=== PATIENT | male | born 1995 | race Caucasian/White ===

== ENCOUNTER 2018-06-22 19:18 | Emergency (ER) | payer OTHER ==
[~2018-06-22] VITALS: Ht 177.8 cm; Wt 81.8 kg
[2018-06-22] MEDS ORDERED: IBUP200C25 PO (21:08)
[2018-06-22] MEDS ORDERED: APAP325T4 PO (21:08)
[2018-06-22] MEDS ORDERED: KETOROLAC 60 MG/2 ML VIAL (J1885) IM ONE (21:45)
--- NOTE | 2018-06-22 22:41 | REPVR ---
EXAM: CT Thoracic Spine Without Contrast EXAM DATE/TIME: 06/22/2018 9:47 PM CLINICAL HISTORY: 22 years old, male; Pain; Pain in thoracic spine; Other: Not specified; Additional info: Atraumatic back pain TECHNIQUE: Axial computed tomography images of the thoracic spine without intravenous contrast. All CT scans at this facility use at least one of these dose optimization techniques: automated exposure control; mA and/or kV adjustment per patient size (includes targeted exams where dose is matched to clinical indication); or iterative reconstruction. Coronal and sagittal reformatted images were created and reviewed. COMPARISON: No relevant prior studies available. FINDINGS: Vertebrae: No acute fracture. Normal alignment. Discs/Spinal canal/Neural foramina: No spinal stenosis. No neural foraminal narrowing. Soft tissues: Unremarkable. IMPRESSION: No acute findings. Electronically signed by: Tony Falcon On 06/22/2018 22:41:06 PM
[2018-06-22] MEDS ORDERED: ROBA500T PO (22:57)
[2018-06-22] MEDS ORDERED: NAPR-50 PO (22:57)
[2018-06-22] MEDS ORDERED: METHOCARBAMOL 750 MG TAB PO ONE (23:00)
[2018-06-22 23:25] VITALS: BP 136/82
== END 2018-06-23 00:06 | disposition home or self-care (01) ==
LOC: M ED 19:18
DX: M54.6 Pain in thoracic spine (principal)
CPT/HCPCS: 72128; 96372; 99283; J1885

== ENCOUNTER → 2018-10-18 | Outpatient (REF) | payer OTHER ==
[~2018-10-18] MED LIST: APAP325T4 PO; IBUP200C25 PO; NAPR-837 PO; ROBA500T PO
[2018-10-18 13:28] LABS: SEMEN APPEARANCE OPAQUE (OPAQUE); SEMEN VISCOSITY LIQUID (LIQUID)
[2018-10-18 13:29] LABS: SPERM CONCENTRATION 43.5 M/ml (>=15.0); WBC CONCENTRATION >1 M/ml (<=1 M/ml)
== END ==
LOC: M LAB REF 12:37
PROVIDERS: ATTEND Physician Assistant Medical
DX: Z31.41 Encounter for fertility testing (principal)

== ENCOUNTER 2020-03-21 20:32 | Emergency (ER) | payer OTHER ==
[~2020-03-21] VITALS: Ht 177.8 cm; Wt 99.9 kg
--- NOTE | 2020-03-21 22:06 | REPVR ---
PROCEDURE INFORMATION: Exam: XR Right Ankle Exam date and time: 03/21/2020 9:27 PM Age: 24 years old Clinical indication: Injury TECHNIQUE: Imaging protocol: XR Right ankle. Views: 3 or more views. COMPARISON: No relevant prior studies available. FINDINGS: Bones/joints: There is no fracture or dislocation. The ankle mortise is symmetric. The joint spaces are preserved. No arthropathy is noted. Soft tissues: Unremarkable. IMPRESSION: No fracture or dislocation of the right ankle. Electronically signed by: Eldon Cho On 03/21/2020 22:06:04 PM
--- NOTE | 2020-03-21 22:08 | REPVR ---
PROCEDURE INFORMATION: Exam: XR Right Knee Exam date and time: 03/21/2020 9:27 PM Age: 24 years old Clinical indication: Injury TECHNIQUE: Imaging protocol: XR Right knee. Views: 4 or more views. COMPARISON: No relevant prior studies available. FINDINGS: Bones/joints: There is no acute fracture or dislocation of the right knee. No right knee joint effusion is noted. The joint spaces are preserved. The patellofemoral alignment is normal. Soft tissues: There are well-corticated ossicles adjacent to the tibial tuberosity at the insertion of the patellar tendon, which may represent unfused ossification centers or the sequela of Robinson-Schlatter's disease. IMPRESSION: 1. No acute fracture or dislocation of the right knee. 2. Well-corticated ossicles adjacent to the tibial tuberosity at the insertion of the patellar tendon, which may represent unfused ossification centers or the sequela of Jailyn-Schlatter's disease. Electronically signed by: Eldon Cho On 03/21/2020 22:07:57 PM
[2020-03-21 23:57] VITALS: BP 140/98
== END 2020-03-22 | disposition home or self-care (01) ==
LOC: M ED 20:32
DX: S93.401A Sprain of unspecified ligament of right ankle, initial encounter (principal); S83.91XA Sprain of unspecified site of right knee, initial encounter; V00.138A Other skateboard accident, initial encounter; Y92.410 Unspecified street and highway as the place of occurrence of the external cause